=== PATIENT | male | born 1990 | race Caucasian/White ===

== ENCOUNTER 2017-12-07 10:10 | Emergency (ER) | payer OTHER ==
[~2017-12-07] VITALS: Ht 182.9 cm; Wt 103.0 kg
[2017-12-07 10:15] VITALS: BP 143/88
== END 2017-12-07 11:38 | disposition home or self-care (01) ==
LOC: ER 10:10
DX: K11.5 Sialolithiasis (principal)
CPT/HCPCS: 99281